=== PATIENT | female | born 1990 | race Caucasian/White ===

== ENCOUNTER 2017-08-26 14:35 | Inpatient (IN) | payer OTHER ==
[2017-08-26 16:24] LABS: BASO % 0.9 % (0-2.0); MCH 29.5 pg (25.7-33.7); MCHC 33.7 g/dl (32.0-36.0); MEAN CELL VOLUME 87.5 fl (80-96); MEAN PLT VOLUME 8.8 fl (7.5-11.1); NEUT % 75.2 % (42.8-82.8); PLATELET COUNT 231 K/MM3 (134-434); RDW 15.2 % (11.6-15.6); WHITE BLOOD COUNT 7.9 K/mm3 (4.0-10.0)
[2017-08-26 16:26] VITALS: BMI 27.8
[2017-08-26] MEDS: DEXTROSE 5%-LACTATED RINGERS 1,000 ML IV SCH (16:30)
[2017-08-26 16:48] LABS: INR 0.88 (0.82-1.09)
[2017-08-26 16:50] LABS: ACTIVATED PTT 27.7 SECONDS (26.9-34.4)
[2017-08-26 17:45] LABS: ANION GAP 10 (8-16); CALCIUM 8.9 mg/dL (8.5-10.1); CO2 23 mmol/L (21-32); CREATININE 0.5 mg/dL (0.55-1.02); GLUCOSE,RANDOM 73 mg/dL (74-106)
--- NOTE | 2017-08-26 22:09 | HP ---
Past Medical History - Admission Chief Complaint: Labor pain History of Present Illness: 27 yo @ 40 weeks gestation, EDC 08/26/17, admitted for augmentation of labor. History Source: Patient Limitations to Obtaining History: No Limitations - Past Medical History ...: 2 ...Para: 0 ...Term: 0 ...: 0 ...Spon : 0 ...Induced : 1 ...LMP: 12/06/16 ... Weeks Gestation by Dates: 37.4 ...EDC by Dates: 09/12/17 ...EDC by Sono: 08/26/17 - Past Surgical History Past Surgical History: Yes: None Hx Myomectomy: No Hx Transabdominal Cerclage: No - Smoking History Smoking history: Never smoked Have you smoked in the past 12 months: No - Alcohol/Substance Use Hx Alcohol Use: No - Social History Usual Living Arrangement: Yes: With Significant Other History of Recent Travel: No Home Medications - Allergies Allergies/Adverse Reactions: Allergies Allergy/AdvReac Type Severity Reaction Status Date / Time No Known Allergies Allergy Verified 08/26/17 15:51 - Home Medications Home Medications: Ambulatory Orders Vitamins (Sjr) - 1 tab PO DAILY 08/26/17 Family Disease History - Family Disease History Family History: Unremarkable Review of Systems - Review of Systems Constitutional: reports: No Symptoms Eyes: reports: No Symptoms HENT: reports: No Symptoms Neck: reports: No Symptoms Cardiovascular: reports: No Symptoms Respiratory: reports: No Symptoms Gastrointestinal: reports: No Symptoms Genitourinary: reports: No Symptoms Breasts: reports: No Symptoms Reported Neurological: reports: No Symptoms Endocrine: reports: No Symptoms Hematology/Lymphatic: reports: No Symptoms Psychiatric: reports: No Symptoms Pain Intensity: 5 Physical Exam - Maternity Vital Signs: Vital Signs Temperature 98.3 F 08/26/17 18:00 Pulse Rate 78 08/26/17 20:00 Respiratory Rate 20 08/26/17 20:00 Blood Pressure 120/70 08/26/17 20:00 O2 Sat by Pulse Oximetry (%) Constitutional: Yes: Well Nourished Eyes: Yes: Conjunctiva Clear HENT: Yes: Atraumatic Neck: Yes: Supple Cardiovascular: Yes: Regular Rate and Rhythm Lungs: Clear to auscultation - Abdominal Exam/OB Number of Fetuses: Single Presentation: Vertex Contractions: Yes Intensity: Mild/Mod - Vaginal Exam/OB Amniotic Membrane Status: Intact Station: -2 - Physical Exam Musculoskeletal: Yes: WNL Extremities: Yes: WNL Integumentary: Yes: WNL ...Motor Strength: WNL Psychiatric: Yes: Alert, Oriented - Labs Lab Results: CBC, BMP 08/26/17 16:10 08/26/17 16:10 Assessment/Plan Posterm Admit to L&D Analgesia as needed Anticipate
[2017-08-26] MEDS ORDERED: morphine SULFATE/Preservative Free 0.5 MG/ML (1cc Syringe) ONE (22:14)
--- NOTE | 2017-08-26 22:14 | PN ---
Progress Note (short form) - Note Progress Note: Patient re-evaluated, she c/o moderate discomfort. FHR : Non-Reassuring [place] : + contractions VE : 480/-1 AROM : + thick meconium A/P : IUP @ 40 weeks Decision made for Case discussed with patient Consent signed Anesthesia to see patient
[2017-08-26] MEDS ORDERED: ceFAZolin SODIUM 1 GM VIAL ONE (22:36)
[2017-08-26] MEDS ORDERED: OXYTOCIN 20 UNITS in 0.9% NS 20 UNIT/1,000 ML INFUS.BAG IV ONE (22:48)
[2017-08-26] MEDS ORDERED: IBUPROFEN 600 MG TABLET (FP) PO PRN ×2 (23:16→23:22)
[2017-08-26] MEDS ORDERED: ONDANSETRON 4 MG/2 ML VIAL IVPUSH PRN (23:16)
[2017-08-26] MEDS ORDERED: METHYLERGONOVINE MALEATE 0.2 MG/1 ML AMP IM PRN (23:22)
--- NOTE | 2017-08-26 23:26 | OP ---
Operative Note - Note: Operative Date: 08/26/17 Pre-Operative Diagnosis: Non-Reassuring FHR Operation: Primary Findings: + meconium Baby in LOT position Post-Operative Diagnosis: Same as Pre-op Surgeon: Wendy Mcdaniel Machinery Cleaner: Daniella Butler Anesthesia: Spinal Specimens Removed: Placenta Estimated Blood Loss (mls): 600 Operative Report Dictated: Yes
[2017-08-26 23:55] LABS: ARTERIAL BLOOD GAS pH 7.28 (7.35-7.45)
[2017-08-26 23:56] LABS: ARTERIAL BLOOD GAS BASE EXCESS -2.8 meq/l (-2-2); ARTERIAL BLOOD GAS HCO3 24.1 meq/L (22-26)
[2017-08-27] LABS: ARTERIAL BLOOD GAS PO2 17.4 mmHg (80-100)
[2017-08-27 00:01] LABS: ARTERIAL BLD GAS O2 SATURATION 25.3 % (90-98.9)
[2017-08-27 00:14] LABS: VENOUS BLOOD GAS HCO3 23.3 meq/L (19-25); VENOUS PH 7.35 (7.32-7.42)
[2017-08-27 08:36] LABS: BASO % 0.1 % (0-2.0); EOS % 0.3 % (0-4.5); MCH 29.1 pg (25.7-33.7); MCHC 33.3 g/dl (32.0-36.0); MEAN CELL VOLUME 87.4 fl (80-96); MEAN PLT VOLUME 8.1 fl (7.5-11.1); NEUT % 83.1 % (42.8-82.8); PLATELET COUNT 182 K/MM3 (134-434); RDW 14.9 % (11.6-15.6); WHITE BLOOD COUNT 8.9 K/mm3 (4.0-10.0)
[2017-08-27] MEDS: FERROUS SO4 325 MG TABLET (FP) PO SCH ×2 (09:08→22:01)
[2017-08-27] MEDS: PRENATAL VITAMINS W/ FOLIC ACID TABLET (FP) PO SCH (09:08)
[2017-08-27] MEDS: OXYTOCIN 20 UNITS in 0.9% NS 20 UNIT/1,000 ML INFUS.BAG IV SCH ×3 (09:49→20:45)
--- NOTE | 2017-08-27 10:41 | PN ---
Post Progress Note - Subjective Subjective: 27 yo Para 1 status post primary , seen and evaluated. Doing well Post Day: 1 Type of Delivery: Primary C/S Vital Signs: Vital Signs Temperature 99.9 F H 08/27/17 09:43 Pulse Rate 93 H 08/27/17 09:43 Respiratory Rate 18 08/27/17 10:00 Blood Pressure 127/78 08/27/17 09:43 O2 Sat by Pulse Oximetry (%) 99 08/27/17 00:15 Breast Exam: Yes: Soft Uterus: Yes: Fundus Firm Incision: Yes: Dressing dry and intact Abdomen/GI: Yes: Abdomen soft Lochia: Yes: Rubra Lochia, amount: Small Extremities: Yes: Calves non-tender Perineum: Yes: Intact - Labs Labs: CBC WBC 8.9 K/mm3 (4.0-10.0) 08/27/17 08:00 RBC 3.85 M/mm3 (3.60-5.2) 08/27/17 08:00 Hgb 11.2 GM/dL (10.7-15.3) D 08/27/17 08:00 Hct 33.7 % (32.4-45.2) 08/27/17 08:00 MCV 87.4 fl (80-96) 08/27/17 08:00 MCH 29.1 pg (25.7-33.7) 08/27/17 08:00 MCHC 33.3 g/dl (32.0-36.0) 08/27/17 08:00 RDW 14.9 % (11.6-15.6) 08/27/17 08:00 Plt Count 182 K/MM3 (134-434) D 08/27/17 08:00 MPV 8.1 fl (7.5-11.1) 08/27/17 08:00 Neutrophils % 83.1 % (42.8-82.8) H 08/27/17 08:00 Lymphocytes % 12.0 % (8-40) D 08/27/17 08:00 Monocytes % 4.5 % (3.8-10.2) 08/27/17 08:00 Eosinophils % 0.3 % (0-4.5) D 08/27/17 08:00 Basophils % 0.1 % (0-2.0) 08/27/17 08:00 Problem List - Problems (1) Status post primary low transverse section Code(s): Z98.891 - HISTORY OF UTERINE SCAR FROM PREVIOUS SURGERY Assessment/Plan Status post Stable Ambulation Analgesia as needed Continue post op care
--- NOTE | 2017-08-27 12:30 | OP ---
DATE OF OPERATION: 08/26/2017 PREOPERATIVE DIAGNOSIS: Nonreassuring heart rate with positive meconium. POSTOPERATIVE DIAGNOSIS: Nonreassuring heart rate with positive meconium. PROCEDURE: Primary low transverse section. SURGEON: Wendy Mcdaniel MD MINERAL ENGINEER: Daniella Butler MD ANESTHESIA: Spinal. COMPLICATIONS: None. ESTIMATED BLOOD LOSS: 600 mL DESCRIPTION OF PROCEDURE: Patient was taken to the operating room where spinal anesthesia was administered. Patient was then prepped and draped in proper sterile fashion. A Pfannenstiel skin incision was made and carried down to the underlying layer of fascia. The fascia was incised in the midline and extended laterally. The superior aspect of the fascial incision was then grasped with a Marianna clamp, elevated, and the rectus muscle dissected out bluntly. Attention was then turned to the inferior aspect of the fascia incision which, in a similar fashion, was then grasped with a Marianna clamp and elevated, and the rectus muscle dissected out bluntly. The rectus muscle was then in the midline. The peritoneum identified and entered sharply with the Metzenbaum scissors. The peritoneal incision was extended superiorly and inferiorly with good visualization of the bladder. Then, the vesicouterine peritoneum was then grasped with a pickup and entered sharply with the Metzenbaum scissors. This incision was extended laterally and a bladder flap created digitally. Then, the bladder blade was placed. The lower uterine segment was incised with a 10-blade. This incision was extended laterally and the head delivered atraumatically. Nose and mouth were suctioned and the cord clamped and cut. The infant was handed to the waiting security nurse. The placenta was then removed manually. The uterus exteriorized and cleared of all clots and debris. The uterine incision was repaired using 0 Biosyn in a running locked fashion. A second layer of the same suture was used as a means to provide excellent hemostasis. Then, the pelvis was then completely irrigated. The uterus was returned to the abdomen. The peritoneum was closed using 2-0 Biosyn. The fascia was reapproximated using 0 Vicryl in a running fashion, and the skin was closed in a subcuticular fashion using 3-0 Vicryl. Patient tolerated the procedure well. Patient was then taken to PACU in stable condition. PATHOLOGY: Placenta. Karan [id number]
--- NOTE | 2017-08-27 13:38 | PN ---
Progress Note (short form) - Note Progress Note: Anesthesia postop note 27 y/o F s/p spinal anesthesia with duramorph for section POD#1, vss, aaox3, sensory motor intact distally, no complaints. No anesthesia complications.
[2017-08-27] MEDS: ACETAMINOPHEN 325 MG TABLET (FP) PO PRN ×2 (13:51→20:50)
[2017-08-27] MEDS: DEXTROSE 5%-LACTATED RINGERS 1,000 ML IV SCH (20:45)
[2017-08-27] MEDS: SIMETHICONE 80 MG TAB.CHEW (FP) PO PRN (20:50)
[2017-08-27] MEDS: oxyCODONE HCL 5 MG TABLET PO PRN (20:50)
[2017-08-27] MEDS ORDERED: BISACODYL 10 MG SUPP.RECT RC PRN (23:22)
[2017-08-28] MEDS: OXYTOCIN 20 UNITS in 0.9% NS 20 UNIT/1,000 ML INFUS.BAG IV SCH (05:28)
--- NOTE | 2017-08-28 06:25 | PN ---
Progress Note (SOAP) - Subjective Chief Complaint: Pt doing well - Current Medications Current Medications: Active Medications Acetaminophen (Tylenol -) 650 mg PO Q4H PRN PRN Reason: FEVER OR PAIN Last Admin: 08/27/17 20:50 Dose: 650 mg Bisacodyl (Dulcolax Suppository -) 10 mg RC PRN PRN PRN Reason: CONSTIPATION Diphtheria/Tetanus/Acell Pertussis (Boostrix -) 0.5 ml IM .ONCE ONE Stop: 08/28/17 10:01 Ferrous Sulfate (Feosol -) 325 mg PO BID [facility] Last Admin: 08/27/17 22:01 Dose: Not Given Ibuprofen (Motrin -) 600 mg PO Q4H PRN PRN Reason: PAIN Last Admin: 08/27/17 20:51 Dose: 600 mg Methylergonovine Maleate (Methergine Injection -) 0.2 mg IM Q4H PRN PRN Reason: Excessive Bleeding (L&D) Ondansetron HCl (Zofran Injection) 4 mg IVPUSH Q4H PRN PRN Reason: NAUSEA Oxycodone HCl (Roxicodone -) 5 mg PO Q4H PRN PRN Reason: PAIN LEVEL 1-5 Last Admin: 08/27/17 20:50 Dose: 5 mg Multivit/Folic Acid/Iron ( Vitamins (Sjr) -) 1 tab PO DAILY [facility] Last Admin: 08/27/17 09:08 Dose: Not Given Simethicone (Mylicon -) 80 mg PO Q4H PRN PRN Reason: GAS Last Admin: 08/27/17 20:50 Dose: 80 mg - Objective Vital Signs: Vital Signs Temperature 99.1 F 08/27/17 21:57 Pulse Rate 89 08/27/17 21:57 Respiratory Rate 18 08/27/17 21:57 Blood Pressure 127/70 08/27/17 21:57 O2 Sat by Pulse Oximetry (%) 99 08/27/17 00:15 Constitutional: Yes: Well Nourished, No Distress Gastrointestinal: Yes: WNL, Soft ....Post : Yes: Uterus firm, Uterus non-tender Breast(s): Yes: WNL Musculoskeletal: Yes: WNL Extremities: Yes: WNL Labs Lab Results: CBC, BMP 08/27/17 08:00 08/26/17 16:10 Assessment/Plan POD2 Plan Percoet oOB
--- NOTE | 2017-08-28 08:31 | PN ---
Progress Note (short form) - Note Progress Note: pod 2 s/p c/s doing well, ambulating, noexcess vaginal bleeding CBC, BMP 08/27/17 08:00 08/26/17 16:10 Last Vital Signs Temp Pulse Resp BP Pulse Ox 99.1 F 89 18 127/70 99 08/27/17 21:57 08/27/17 21:57 08/27/17 21:57 08/27/17 21:57 08/27/17 00:15 abdomen soft, no distension, no cva incision dry, clean no calf tenderness plan ambulate , cbc in am
[2017-08-28] MEDS: FERROUS SO4 325 MG TABLET (FP) PO SCH ×2 (10:00→21:22)
[2017-08-28] MEDS ORDERED: DIPHTH,PERTUSS(ACELL),TET 0.5 ML DISP.SYRIN IM ONE (10:00)
[2017-08-28] MEDS: PRENATAL VITAMINS W/ FOLIC ACID TABLET (FP) PO SCH (10:00)
[2017-08-28] MEDS: SIMETHICONE 80 MG TAB.CHEW (FP) PO PRN (21:22)
[2017-08-28] MEDS: oxyCODONE HCL 5 MG TABLET PO PRN (21:22)
[2017-08-28] MEDS: ACETAMINOPHEN 325 MG TABLET (FP) PO PRN (21:23)
[2017-08-28 23:37] VITALS: PULSE 90
[2017-08-29 08:13] LABS: BASO # 0.1 # (0.1-1); BASO % 0.7 % (0-2.0); EOS # 0.1 # (0-4.5); EOS % 1.5 % (0-4.5); LYMPH # 1.1 (8-40); MCH 28.7 pg (25.7-33.7); MCHC 32.8 g/dl (32.0-36.0); MEAN CELL VOLUME 87.5 fl (80-96); MEAN PLT VOLUME 7.7 fl (7.5-11.1); MONO # 0.5 # (3.8-10.2); NEUT # 7.4 # (42.8-82.8); NEUT % 80.9 % (42.8-82.8); PLATELET COUNT 214 K/MM3 (134-434); RDW 15.5 % (11.6-15.6); WHITE BLOOD COUNT 9.1 K/mm3 (4.0-10.0)
--- NOTE | 2017-08-29 08:13 | DS ---
Physical Exam-STAFFING PROGRAM MANAGER Vital Signs: Vital Signs Temperature 98.7 F 08/28/17 22:00 Pulse Rate 90 08/28/17 22:00 Respiratory Rate 18 08/28/17 22:00 Blood Pressure 109/65 08/28/17 22:00 O2 Sat by Pulse Oximetry (%) 99 08/27/17 00:15 Constitutional: Yes: Well Nourished Eyes: Yes: Conjunctiva Clear HENT: Yes: Atraumatic Neck: Yes: Supple Cardiovascular: Yes: Regular Rate and Rhythm Respiratory: Yes: Regular Gastrointestinal: Yes: Normal Bowel Sounds ...Rectal Exam: Yes: WNL Renal/: Yes: WNL Pelvis: Yes: WNL External Genitalia: Yes: Normal Vaginal Exam: Yes: Normal Cervix: Yes: Normal Uterus: Yes: Firm Wound/Incision: Yes: Well Approximated, Steri Strips (in place) Neurological: Yes: Alert, Oriented ...Motor Strength: WNL Psychiatric: Yes: Alert, Oriented Labs: CBC, BMP 08/26/17 16:10 Delivery - Delivery Type of Anesthesia: Spinal Episiotomy/Laceration: None EBL (cc): 600 Delivery, Single - Stages of Labor Date 1st Stage Initiatied: 08/26/17 Time 1st Stage Initiated: 17:00 Date of Delivery: 08/26/17 Time of Delivery: 22:49 Time Placenta Delivered: 22:50 - Condition of Infant Home Health Caregiver/Electronics Tech Present: Yes Name: Jessy Virk Gender: Female Weight: 8 lb 9 oz Position: Left, OT Total Hours ROM (Hrs/Mins): 1 hour 34 minutes - 1 Minute Total Score: 9 5 Minutes Total Score: 9 - Feeding Plan Initial Plan: Exclusive throughout hospitalization Discharge Summary Reason For Visit: LABOR Current Active Problems Status post primary low transverse section (Acute) Procedures: Principal: Primary Low Transverse Hospital Course: Routine care Condition: Good - Instructions Diet, Activity, Other Instructions: Regular diet No driving, no lifting x 4 weeks F/U in clinic in 2 weeks Disposition: HOME - Home Medications Comprehensive Discharge Medication List: Ambulatory Orders Vitamins (Sjr) - 1 tab PO DAILY 08/26/17
[2017-08-29 09:43] VITALS: BP 125/58; TEMP 98.8
[2017-08-29] MEDS: PRENATAL VITAMINS W/ FOLIC ACID TABLET (FP) PO SCH (10:17)
[2017-08-29] MEDS: FERROUS SO4 325 MG TABLET (FP) PO SCH (10:17)
--- NOTE | 2017-09-01 14:37 | PATH ---
Surgical Pathology Report Patient Name: TANIA RAMSEY Med. Rec. #: [id number] /Age/Gender: 1990 (Age: 27) / F Account: [id number] Location: [facility] OBS/CIGARETTE STAMPER Taken: 08/26/2017 Received: 08/27/2017 Reported: 09/01/2017 Physicians: Wendy Mcdaniel M.D. Specimen(s) Received PLACENTA Clinical History Nonreassuring heart rate, meconium Final Diagnosis PLACENTA, SECTION: 493 g THIRD TRIMESTER PLACENTA WITH TRIVASCULAR UMBILICAL CORD, MEMBRANES WITH MECONIUM-LADEN MACROPHAGES AND FOCAL ACUTE CHORIOAMNIONITIS. Electronically Signed Tania Lee M.D. Gross Description The specimen is received fresh labeled placenta and is a 493 gram, 19.0 x 16.0 x 2.2 cm. placenta with attached membranes and umbilical cord. The attached membranes are thomas green, meconium stained, translucent with focal opacities and insert marginally. The umbilical cord measures 16.5 cm. in length and averages 1.2 cm. in diameter. The cord inserts eccentrically, 5.5 cm. to the nearest margin. No true knots or strictures are identified. Cut surface of the umbilical cord reveals 3 vessels. The surface is tabares-blue with minimal fibrin deposition and appropriate caliber vessels. The maternal surface is red-brown with focal defects. Sectioning reveals red-brown, spongy parenchyma. No lesions are identified. Accelerator Technician sections are submitted in three cassettes as follows: 1- membrane rolls and umbilical cord; 2-3- full thickness sections of placenta. 08/28/2017 [facility]08/28/2017
== END 2017-08-29 12:25 | disposition home or self-care (01) | DRG 540 ==
LOC: JDEL 14:35 → JLDR 15:40 → J3W 08-27 01:41
PROVIDERS: ADMIT Obstetrics & Gynecology; ATTEND Obstetrics & Gynecology
PROC: 10D00Z1 Extraction of Products of Conception, Low, Open Approach (ICD-10-PCS; principal; 2017-08-26)
DX: O76 Abnormality in fetal heart rate and rhythm complicating labor and delivery (principal); O77.0 Labor and delivery complicated by meconium in amniotic fluid; O48.0 Post-term pregnancy; Z3A.40 40 weeks gestation of pregnancy; Z37.0 Single live birth
CPT/HCPCS: 36415; 36600; 80048; 82803; 85025; 85610; 85730; 86593; 86850; 86900; 86901; 88307-TC; 90715